=== PATIENT | male | born 1960 | race Caucasian/White ===

== ENCOUNTER → 2016-09-01 | Day surgery (SDC) | payer BC, OTHER ==
[~2016-09-01] MED LIST: Flumazenil 0.1 MG/ML 5 ML MDV ONE; Lactated Ringers 1,000 ML IV SCH; Lactated Ringers 1,000 ML ONE; Meperidine PF 50 MG/ML Syringe IV ONE; Meperidine PF 50 MG/ML Syringe ONE; Midazolam 1 MG/ML 2 ML SDV IV ONE; Midazolam 1 MG/ML 2 ML SDV ONE
[2016-09-01 11:01] VITALS: BP 122/86
--- NOTE | 2016-09-02 07:04 | OR ---
DATE OF OPERATION: 09/01/2016 PREOPERATIVE DIAGNOSIS: COLON SCREENING. POSTOPERATIVE DIAGNOSIS: NORMAL COLONOSCOPY. SURGEON: Can Vaughan MD PROCEDURE: COLONOSCOPY. ANESTHESIA: IV sedation 4 mg of Versed and 50 of Demerol. PROCEDURE: AFTER THE PATIENT WAS PLACED IN LEFT LATERAL POSITION, COLONOSCOPE WAS INTRODUCED INTO ANAL CANAL FROM WHERE IT WAS MANEUVERED INTO RECTUM, THEN INTO SIGMOID COLON, GRADUALLY UP THE DESCENDING COLON ACROSS THE SPLENIC FLEXURE INTO TRANSVERSE COLON, ACROSS THE HEPATIC FLEXURE, INTO ASCENDING COLON, DOWN TO CECUM. MULTIPLE PHOTOGRAPHS WERE TAKEN. COLONOSCOPE WAS GRADUALLY WITHDRAWN. THERE WAS NO EVIDENCE OF ANY TUMOR MASS OR ANY POLYPOID LESION, ANY INFLAMMATORY PROCESS. THE PATIENT TOLERATED THE PROCEDURE WELL AND LEFT THE OPERATING ROOM IN SATISFACTORY CONDITION. ERIN/NICOLE /[id number]
== END ==
LOC: CC.SDS 09:01
PROVIDERS: ATTEND Surgery
DX: Z12.11 Encounter for screening for malignant neoplasm of colon (principal); A64 Unspecified sexually transmitted disease; Z78.9 Other specified health status; F17.210 Nicotine dependence, cigarettes, uncomplicated
CPT/HCPCS: 45378; J2175; J2250; J7120

== ENCOUNTER 2019-02-03 21:20 | Emergency (ER) | payer OTHER ==
--- NOTE | 2019-02-03 21:43 | EDM.PDOC ---
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 He fell approximately 3 feet to the ground onto his left hip and his head hit the ground. He states that his posterior pelvis hurts especially with any weight applied, and with external rotation. His neck is sore from "snapping" it and he has a mild headache. He felt he was stunned but not knocked out. He denies any bleeding. Has small abrasion to the posterior scalp. no hematoma noted. GCS =15. Onset: Today Onset Date: 02/03/19 Improves with: Reports: Rest Worsens with: Reports: Movement Generalized Pain Score (Numeric/FACES): 8 - Related Data Allergies Allergy/AdvReac Type Severity Reaction Status Date / Time No Known Allergies Allergy Verified 02/03/19 21:31 Home Meds: Home Meds atorvaSTATin [Lipitor] 20 mg PO DAILY 02/03/19 [History] Past Medical History Cardiovascular History: Reports: High Cholesterol Social & Family History - Tobacco Use Smoking Status *Q: Current Every Day Smoker ED ROS GENERAL - Review of Systems Review Of Systems: See Below Constitutional: Reports: No Symptoms HEENT: Denies: Vision Change Respiratory: Reports: No Symptoms Cardiovascular: Reports: No Symptoms Musculoskeletal: Reports: Neck Pain, Other (posterior pelvis pain). Denies: Back Pain Skin: Reports: No Symptoms Neurological: Reports: Headache. Denies: Dizziness ED EXAM, GENERAL - Physical Exam Exam: See Below Exam Limited By: No Limitations General Appearance: Alert, WD/WN, Mild Distress Ears: Normal External Exam, Normal Canal, Normal TMs Head: Atraumatic, Normocephalic, Other (very small abrasion noted to posterior scalp) Neck: Normal Inspection, Supple, Full Range of Motion, Tender Midline (No deformity noted.) Respiratory/Chest: No Respiratory Distress, Lungs Clear, Normal Breath Sounds Cardiovascular: Regular Rate, Rhythm GI/Abdominal: Normal Bowel Sounds, Soft, Non-Tender Back Exam: Normal Inspection, Full Range of Motion Extremities: Normal Inspection, Normal Range of Motion (Has discomfort to posterior pelvis with external rotation of the right hip.), No Pedal Edema, Normal Capillary Refill Neurological: Alert, Oriented Skin Exam: Warm, Dry, Intact Course - Vital Signs Last Recorded V/S: Last Vital Signs Temp 99.9 F 02/03/19 21:23 Pulse 85 02/03/19 21:23 Resp 16 02/03/19 21:23 BP 136/90 02/03/19 21:23 Pulse Ox 99 02/03/19 21:23 - Orders/Labs/Meds Orders: Active Orders 24 hr Category Date Time Status C-Spine [Cervical Spine 2V or 3V] [CR] Stat Exams 02/03/19 21:31 Ordered Pelvis 1V or 2V [CR] Stat Exams 02/03/19 21:32 Ordered DRUG SCREEN URINE BIORAD [URCHEM] Stat Lab 02/03/19 21:32 Ordered - Re-Assessments/Exams Free Text/Narrative Re-Assessment/Exam: 02/03/19 22:20 Discussed that he has normal xrays Drug screen being obtained by lab. Departure - Departure Time of Disposition: 22:21 Disposition: Home, Self-Care 01 Condition: Good Clinical Impression: Fall from steps Superficial bruising of hip Qualifiers: Encounter type: initial encounter Laterality: right Qualified Code(s): S70.01XA - Contusion of right hip, initial encounter - Discharge Information *PRESCRIPTION DRUG MONITORING PROGRAM REVIEWED*: Not Applicable *COPY OF PRESCRIPTION DRUG MONITORING REPORT IN PATIENT [place]: Not Applicable Additional Instructions: Use tylenol or advil as needed for discomfort If not effective use Relafen 00 mg every 12 hours as needed May return to work on light duty and return as discomfort allows. recheck if any new concerns. - Problem List & Annotations (1) Superficial bruising of hip SNOMED Code(s): 36095272 Code(s): S70.00XA - CONTUSION OF UNSPECIFIED HIP, INITIAL ENCOUNTER Status : Acute Priority: High Current Visit: Yes Qualifiers: Encounter type: initial encounter Laterality: right Qualified Code(s): S70.01XA - Contusion of right hip, initial encounter (2) Fall from steps SNOMED Code(s): 287430401 Code(s): W10.9XXA - FALL (ON) (FROM) UNSPECIFIED STAIRS AND STEPS, INIT ENCNTR Status: Acute Priority: High Current Visit: Yes Qualifiers: Encounter type: initial encounter Qualified Code(s): W10.9XXA - Fall (on) ( from) unspecified stairs and steps, initial encounter - Problem List Review Problem List Initiated/Reviewed/Updated: Yes - My Orders Last 24 Hours: My Active Orders 02/03/19 21:31 C-Spine [Cervical Spine 2V or 3V] [CR] Stat 02/03/19 21:32 Pelvis 1V or 2V [CR] Stat DRUG SCREEN URINE BIORAD [URCHEM] Stat - Assessment/Plan Last 24 Hours: My Active Orders 02/03/19 21:31 C-Spine [Cervical Spine 2V or 3V] [CR] Stat 02/03/19 21:32 Pelvis 1V or 2V [CR] Stat DRUG SCREEN URINE BIORAD [URCHEM] Stat
== END 2019-02-03 22:31 | disposition home or self-care (01) ==
LOC: CC.ED 21:20
DX: S70.01XA Contusion of right hip, initial encounter (principal); W10.9XXA Fall (on) (from) unspecified stairs and steps, initial encounter; F17.200 Nicotine dependence, unspecified, uncomplicated
CPT/HCPCS: 72040; 72170; 99283-25